=== PATIENT | female | born 1960 | race Native Hawaiian/Other Pacific Islander ===

== ENCOUNTER 2016-09-30 07:21 | Day surgery (SDC) | payer MEDICARE, OTHER ==
[2016-09-30] MEDS ORDERED: Lactated Ringer's 500 ML IV ONE (08:09)
[2016-09-30] MEDS ORDERED: Midazolam 2 MG/2 ML VIAL ONE (08:35)
[2016-09-30] MEDS ORDERED: Propofol 10 mg/ml Inj (20 ML) ONE (08:35)
[2016-09-30 09:36] VITALS: TEMP 97
[2016-09-30 09:47] VITALS: BP 102/61; PULSE 70; RESP 18; O2SAT 98
== END 2016-09-30 10:30 | disposition home or self-care (01) ==
LOC: H.ENDO 07:21
PROVIDERS: ATTEND Internal Medicine Gastroenterology
DX: Z12.11 Encounter for screening for malignant neoplasm of colon (principal); E78.5 Hyperlipidemia, unspecified; K64.8 Other hemorrhoids
CPT/HCPCS: 45378; J2001; J2250; J2704; J7120